=== PATIENT | female | born 1970 | race Caucasian/White ===

== ENCOUNTER 2018-01-09 18:39 | Emergency (ER) | payer OTHER ==
[~2018-01-09] VITALS: Ht 180.3 cm; Wt 72.6 kg
[~2018-01-09 18:39] MED LIST: DOXYCYCLINE 10100 MG PO; HYDROCODONE-AP1 EAC6 PO; NORCO 5-325 TA1 EACH PO; PHENERGAN 25 MG25 M1 PO
[2018-01-09 19:11] LABS: ABSOLUTE BASOPHILS 0.1 thou/uL (0.0-0.2); ABSOLUTE EOSINOPHILS 0.2 thou/uL (0.0-0.7); ABSOLUTE LYMPHOCYTES 2.3 thou/uL (0.8-5.3); ABSOLUTE MONOCYTES 0.6 thou/uL (0.0-1.2); ABSOLUTE NEUTROPHILS 4.1 thou/uL (1.6-8.1); EOSINOPHILS 2.8 %; HEMATOCRIT 44.1 % (37.0-47.0); HEMOGLOBIN 14.9 gm/dL (12.0-15.0); LYMPHOCYTES 31.3 %; MCH 31.7 pg (26.0-34.0); MCHC 33.8 g/dL (28.0-37.0); MONOCYTES 7.8 %; MPV 8.8 fl. (7.2-11.1); NUCLEATED RBCS 0 /100WBC; PLATELET COUNT* 237 thou/uL (150-400); POLYS 57.1 %; RBC 4.69 mil/uL (4.20-5.00); WBC 7.3 thou/uL (4.0-11.0)
[2018-01-09 19:16] LABS: APTT 29.2 Seconds (25.0-31.3); PROTIME 10.6 Seconds (9.20-11.50)
[2018-01-09 19:27] LABS: ANION GAP 5 mmol/L (7-16); BUN 10 mg/dL (7-18); CALCIUM 8.5 mg/dL (8.5-10.1); CHLORIDE 105 mmol/L (98-107); CO2 30 mmol/L (21-32); CREATININE 0.9 mg/dL (0.6-1.3); GLUCOSE 75 mg/dL (70-99); POTASSIUM 3.6 mmol/L (3.5-5.1); SODIUM 140 mmol/L (136-145)
[2018-01-09 19:33] LABS: ALBUMIN 3.2 g/dL (3.4-5.0); ALKALINE PHOSPHATASE 60 U/L (46-116); LIPASE 115 U/L (73-393); SGOT 15 U/L (15-37); SGPT 9 U/L (30-65); TOTAL BILIRUBIN 0.6 mg/dL (<0.1-1.0); TOTAL PROTEIN 7.3 g/dL (6.4-8.2); TROPONIN-I LEVEL <0.06 ng/mL (<0.06)
[2018-01-09 21:09] LABS: URINE BILIRUBIN NEGATIVE (Negative); URINE BLOOD 1+ (Negative); URINE CLARITY CLEAR; URINE COLOR YELLOW; URINE GLUCOSE-RANDOM NEGATIVE (Negative); URINE KETONES NEGATIVE (Negative); URINE LEUKOCYTES NEGATIVE (Negative); URINE NITRITE NEGATIVE (Negative); URINE PROTEIN NEGATIVE (Negative); URINE SPECIFIC GRAVITY <= 1.005 (1.005-1.030); URINE UROBILINOGEN 0.2 E.U./dl (0.2-1.0)
[2018-01-09 21:16] LABS: CASTS None Seen /LPF (None Seen); CRYSTALS None Seen /LPF (None Seen); MUCUS None Seen strn/LPF (None Seen); SQUAMOUS 0-3 Few /LPF (0-3)
[2018-01-09 21:17] LABS: BACTERIA None Seen /HPF (None Seen); URINE RBC 0-2 Rare /HPF (0-2); URINE WBC None Seen /HPF (0-5)
[2018-01-09] MEDS ORDERED: BENTYL 10 MG CA10 M1 PO (21:30)
[2018-01-09 21:55] VITALS: BP 112/65
--- NOTE | 2018-01-10 10:45 | EKG ---
[place] [address] ELECTROCARDIOGRAM REPORT Name: JHONY POOLE Room: [facility]#: [id number] Admission: 01/09/18 Attend Phys: Discharge: 01/09/18 Date of : 72 Report #: [id number] THIS REPORT FOR: //name// [facility] ED Test Date: 2018-01-09 Test Time: 19:31:14 Pat Name: JHONY POOLE Department: Room: Gender: F Hide Splitter: ROBERTA : 1970 Requested By: Winsome Rodriguez Order Number: [id number] MD: Leandro Laura Measurements Intervals [place] Rate: 74 P: 71 VA: 153 QRS: 92 QRSD: 90 T: 65 QT: 401 QTc: 445 Interpretive Statements Sinus rhythm Borderline right axis deviation Compared to ECG 09/19/2016 12:17:59 Sinus tachycardia no longer present Electronically Signed On 01-10-2018 10:45:29 CDT by Leandro Laura [email or web address] <ELECTRONICALLY SIGNED> By: Leandro Lauar MD, [facility] 01/10/18 1045 30 30 Leandro Laura MD, FAC /EPI
== END 2018-01-09 21:56 | disposition home or self-care (01) ==
LOC: M.ERS 18:39
PROVIDERS: Physician Assistant
DX: R10.30 Lower abdominal pain, unspecified (principal); R31.9 Hematuria, unspecified; F17.210 Nicotine dependence, cigarettes, uncomplicated; Z88.0 Allergy status to penicillin; Z98.890 Other specified postprocedural states

== ENCOUNTER 2018-02-13 11:12 | Emergency (ER) | payer OTHER ==
[~2018-02-13] VITALS: Ht 180.3 cm; Wt 67.6 kg
[~2018-02-13 11:12] MED LIST changes: +BENTYL 10 MG CA10 M1 PO
[2018-02-13] MEDS ORDERED: VENTOLIN HFA 1818 GM INH (11:18)
[2018-02-13] MEDS ORDERED: LEVAQUIN 750 M750 MG PO (11:19)
[2018-02-13] MEDS ORDERED: TRAMADOL 50 MG50 MG PO (11:19)
[2018-02-13 11:42] LABS: ABSOLUTE BASOPHILS 0.1 thou/uL (0.0-0.2); ABSOLUTE EOSINOPHILS 0.1 thou/uL (0.0-0.7); ABSOLUTE LYMPHOCYTES 2.4 thou/uL (0.8-5.3); ABSOLUTE MONOCYTES 0.5 thou/uL (0.0-1.2); ABSOLUTE NEUTROPHILS 5.1 thou/uL (1.6-8.1); BASOPHILS 1.5 %; EOSINOPHILS 1.5 %; HEMATOCRIT 43.4 % (37.0-47.0); HEMOGLOBIN 14.6 gm/dL (12.0-15.0); LYMPHOCYTES 28.5 %; MCH 31.6 pg (26.0-34.0); MCHC 33.8 g/dL (28.0-37.0); MCV 93.4 fL (80.0-100.0); MONOCYTES 6.6 %; MPV 8.6 fl. (7.2-11.1); NUCLEATED RBCS 0 /100WBC; PLATELET COUNT* 237 thou/uL (150-400); POLYS 61.9 %; RBC 4.64 mil/uL (4.20-5.00); WBC 8.3 thou/uL (4.0-11.0)
[2018-02-13 12:22] LABS: INFLUENZA A ANTIGEN None Detected (None Detect); INFLUENZA B ANTIGEN None Detected (None Detect)
[2018-02-13 12:26] LABS: ANION GAP 6 mmol/L (7-16); BUN 12 mg/dL (7-18); CHLORIDE 101 mmol/L (98-107); CO2 26 mmol/L (21-32); POTASSIUM 4.1 mmol/L (3.5-5.1); SODIUM 133 mmol/L (136-145)
[2018-02-13 12:27] LABS: CALCIUM 9.2 mg/dL (8.5-10.1); GLUCOSE 90 mg/dL (70-99)
[2018-02-13 12:29] LABS: ALBUMIN 3.3 g/dL (3.4-5.0); ALKALINE PHOSPHATASE 70 U/L (46-116); LIPASE 128 U/L (73-393); MAGNESIUM 1.8 mg/dL (1.8-2.4); SGOT 20 U/L (15-37); SGPT 11 U/L (30-65); TOTAL BILIRUBIN 0.5 mg/dL (<0.1-1.0); TOTAL PROTEIN 7.3 g/dL (6.4-8.2); TROPONIN-I LEVEL <0.06 ng/mL (<0.06)
[2018-02-13] MEDS ORDERED: IBUPROFEN 800800 M1 PO (12:34)
[2018-02-13 12:37] VITALS: BP 104/69
--- NOTE | 2018-02-13 18:13 | EKG ---
[place] [address] ELECTROCARDIOGRAM REPORT Name: JHONY POOLE Room: [facility]#: [id number] Admission: 02/13/18 Attend Phys: Discharge: 02/13/18 Date of : 72 Report #: [id number] THIS REPORT FOR: //name// [facility] ED Test Date: 2018-02-13 Test Time: 11:29:25 Pat Name: JHONY POOLE Department: Room: Gender: F Circular Distributor: Sidra YUN : 1970 Requested By: Angelito Rodriguez Order Number: [id number] MD: Kris Adler Measurements Intervals [place] Rate: 96 P: 68 ID: [id number] QRS: 85 QRSD: 98 T: 55 QT: 371 QTc: 469 Interpretive Statements Sinus rhythm RSR' in V1 or V2, probably normal variant Compared to ECG 01/09/2018 19:31:14 RSR' in V1 or V2 now present Electronically Signed On 02-13-2018 18:12:52 CDT by Kris Adler [email or web address] <ELECTRONICALLY SIGNED> By: Kris Adler MD, [facility] 02/13/181811 1129 28 Kris Adler MD, FAC /EPI
== END 2018-02-13 12:37 | disposition home or self-care (01) ==
LOC: M.ERS 11:12
PROVIDERS: Emergency Medicine Emergency Medical Services
DX: J06.9 Acute upper respiratory infection, unspecified (principal); M79.18 Myalgia, other site; Z88.0 Allergy status to penicillin; Z98.890 Other specified postprocedural states

== ENCOUNTER 2018-06-13 18:29 | Emergency (ER) | payer OTHER ==
[~2018-06-13] VITALS: Ht 180.3 cm; Wt 63.5 kg
[~2018-06-13 18:29] MED LIST changes: +IBUPROFEN 800800 M1 PO; +LEVAQUIN 750 M750 MG PO; +TRAMADOL 50 MG50 MG PO; +VENTOLIN HFA 1818 GM INH
[2018-06-13] MEDS ORDERED: TRAMADOL 50 MG50 MG PO (19:25)
[2018-06-13 19:52] VITALS: BP 112/62
== END 2018-06-13 19:52 | disposition home or self-care (01) ==
LOC: M.ERS 18:29
DX: M25.562 Pain in left knee (principal); F17.210 Nicotine dependence, cigarettes, uncomplicated; Z88.6 Allergy status to analgesic agent; Z88.8 Allergy status to other drugs, medicaments and biological substances; Z88.0 Allergy status to penicillin; Z98.890 Other specified postprocedural states